=== PATIENT | female | born 1980 | race Caucasian/White ===

== ENCOUNTER 2017-09-11 06:19 | Day surgery (SDC) | payer OTHER ==
[2017-09-11 07:10] VITALS: O2SAT 100
[2017-09-11] MEDS ORDERED: Clindamycin 600mg/50ml NS 0 MG/0 ML BAG IVPB ONE (07:43)
[2017-09-11] MEDS ORDERED: Midazolam 2 MG/2 ML VIAL ONE (07:45)
[2017-09-11] MEDS ORDERED: Propofol 10 mg/ml Inj (20 ML) ONE (07:45)
[2017-09-11] MEDS ORDERED: Succinylcholine Chloride 20 mg/ml Syr (5 ml) IV ONE (07:47)
[2017-09-11] MEDS ORDERED: Rocuronium 10 mg/ml (5 ml) ONE (07:47)
[2017-09-11] MEDS ORDERED: Bupivacaine 0.25% 20 ML INJ IJ ONE (07:52)
[2017-09-11] MEDS ORDERED: Neostigmine Methylsulfate 3mg/3ml Syringe IV ONE (08:11)
[2017-09-11] MEDS ORDERED: HYDROmorphone 0.5 mg/0.5 ml ISec IVP PRN (08:28)
--- NOTE | 2017-09-11 08:35 | PCM.SURG1 ---
Surgeon's Initial Post Op Note - Surgeon's Notes Surgeon: dr vidales Oncology Radiation Physician: dr shepherd Type of Anesthesia: General LMA Anesthesia Administered By: dr randall Pre-Operative Diagnosis: 37 yr multiparity/permanent sterlistion Operative Findings: see the op reort Post-Operative Diagnosis: same Operation Performed: laprscopic b/l tubal ligation Specimen/Specimens Removed: none Estimated Blood Loss: EBL {In ML}: 20 Blood Products Given: N/A Drains Used: No Drains Post-Op Condition: Good Date of Surgery/Procedure: 09/11/17 Time of Surgery/Procedure: 09:00
[2017-09-11 13:40] VITALS: BP 98/60; PULSE 61; RESP 16; TEMP 97.4
--- NOTE | 2017-09-12 05:33 | OP ---
PROCEDURE DATE: 09/11/2017 PREOPERATIVE DIAGNOSES: A 37-year-old 4 para 2 with multiparity, requests permanent sterilization. POSTOPERATIVE DIAGNOSES: A 37-year-old 4 para 2 with multiparity, requests permanent sterilization. SURGEON: Zachary Clark MD SALVAGE MACHINE OPERATOR: Pawan Nelson MD ANESTHESIA: General. ANESTHESIOLOGIST: Froy Quinn MD PROCEDURE PERFORMED: Laparoscopic bilateral tubal ligation. COMPLICATIONS: None. ESTIMATED BLOOD LOSS: 20 mL. DESCRIPTION OF PROCEDURE: After informed consent was obtained, the patient was brought to the operating room, placed on the table where general anesthesia was given. Once anesthesia was given, the patient was prepped and draped in the normal sterile fashion. After that, a Leblanc catheter was then inserted in sterile condition. After that, the HUMI catheter was inserted in the uterus for manipulation of the uterus. Attention was turned towards the patient's abdomen. After that, Marcaine was given. At the lower segment of the umbilicus, an incision was made and the fascia was excised. It was lifted up and then tied with a stitch. After that, intra-abdominal placement with Acosta was confirmed using intra-abdominal gas. It was found that the uterus, tubes, and ovaries looked normal. Then, another 5-mm port was placed in the left side. After that, LigaSure was used to do the tubal ligation, first on the left side and then the right side. It was cut and cauterized at two places on both sides. Pictures were taken. After that, all the ports were removed. It was hemostatic. No bleeding. All the ports were removed. The fascia was closed using 2-0 Vicryl. Skin was closed using 3-0 Monocryl. HUMI catheter was removed. Leblanc catheter was removed. The patient tolerated the procedure well. Laps, sponge, and instrument counts were correct x2. Zachary Clark MD
== END 2017-09-11 13:37 | disposition home or self-care (01) ==
LOC: C.SDS 06:19
PROVIDERS: ATTEND Obstetrics & Gynecology
DX: Z30.2 Encounter for sterilization (principal)
CPT/HCPCS: 58670; J1100; J1170; J2001; J2250; J2405; J2704; J2710; J2765; J3010